=== PATIENT | male | born 1965 | race Caucasian/White ===

== ENCOUNTER → 2019-01-03 | Outpatient (CLI) | payer BC, SELFPAY ==
--- NOTE | 2019-01-03 14:24 | RAD_ITS ---
STUDY: X-RAY - LEFT WRIST REASON FOR EXAM: Male, 54 years old. Left wrist pain TECHNIQUE: 3 view(s) of the wrist were obtained. COMPARISON: None. FINDINGS: Normal visualized distal radius and ulna. There is degenerative arthrosis of the radiocarpal articulation. There is a negative ulnar variance. Normal carpal bones. There is degenerative arthrosis of the carpal articulations. Normal carpometacarpal articulation of the thumb. Normal second through fifth carpometacarpal articulations. Old healed fracture of the fifth metacarpal. The soft tissue structures are unremarkable. RAD/Wrist min 3 Views IMPRESSION: Degenerative arthrosis of the wrist. Electronically Signed: Cecilia Crawford, at 8:15 EDT Tel , Service support ,
== END | disposition home or self-care (01) ==
LOC: HPRAD 14:23
PROVIDERS: Referring Provider Physician Assistant; Visit Provider Physician Assistant
DX: M25.532 Pain in left wrist (principal)
CPT/HCPCS: 73110